=== PATIENT | male | born 1965 | race African-American/Black ===

== ENCOUNTER 2024-09-21 18:06 | Emergency (ER) | payer MEDICAID, OTHER ==
[~2024-09-21] VITALS: Ht 167.6 cm; Wt 68.0 kg
[~2024-09-21 18:06] MED LIST: HYDR12.59 PO; INSU70IN9 SC; LIS5T PO
[2024-09-21 18:34] VITALS: BP 126/65; PULSE 111; RESP 20; TEMP 99.2; O2SAT 98
--- NOTE | 2024-09-21 19:30 | ED.PDOC ---
Musculoskeletal HPI Comments 58 y/o M, with PMHX of DM presents to the ED for CC of postoperative complication. Patient states, that he broke his right ankle on Wednesday (09/17/24) and had a reduction done at a hospital in [facility]. Patient endorses, drainage from splint . Patient denies current pain, fever, body-aches, numbness, or weakness. No other symptoms or modifying factors present at this time. Chief Complaint: Lower Extremity Time Seen by MD: 19:00 Primary Care Provider: KAITLIN Aranda Notes: Nurses Notes, Medications, Allergies Allergies: Coded Allergies: NO KNOWN ALLERGIES (Unverified , 11/16/14) Home Meds Reported Medications Insulin Isophane & Reg (Human) (Humulin 70/30) 70/30 Inj, 25 UNIT SC MORNING, INJ 11/16/14 Hydrochlorothiazide (Hydrochlorothiazide) 12.5 Mg Cap, 1 CAP PO DAILY, #30 CAP 5 Refills 11/16/14 Lisinopril (ZESTRIL TABLET) 5 Mg Tb, 1 TAB PO DAILY, #30 TAB 5 Refills 11/16/14 Information Source: Patient Mode of Arrival: Ambulatory Location: Right Extremity Location: Ankle Timing: Days Prehospital treatment: None Severity: Moderate Able to Move Extremity: Yes Bear Weight: No Pain: None Mechanism: Twisting Circumstances: Fall Onset of Symptoms: After Trauma Associated signs and symptoms: None Past Medical History PAST MEDICAL HISTORY: DM Surgical History: Denies all surgeries Family History Family History: Unknown Social History Smoker: Non-Smoker Alcohol: Denies ETOH Use Drugs: Denies Drug Use Lives In: Home Constitutional: denies: chills, diaphoresis, fatigue, fever, malaise, sweats, weakness, others EENTM: denies: blurred vision, double vision, ear bleeding, ear discharge, ear drainage, ear pain, ear ringing, eye pain, eye redness, hearing loss, mouth pain, mouth swelling, nasal discharge, nose bleeding, nose congestion, nose pain, photophobia, tearing, throat pain, throat swelling, voice changes, others Respiratory: denies: cough, hemoptysis, orthopnea, SOB at rest, shortness of breath, SOB with excertion, stridor, wheezing, others Cardiovascular: denies: chest pain, dizzy spells, diaphoresis, Dyspnea on exertion, edema, irregular heart beat, left arm pain, lightheadedness, palpitations, PND, syncope, others Gastrointestinal: denies: abdomen distended, abdominal pain, blood streaked bowels, constipated, diarrhea, dysphagia, difficulty swallowing, hematemesis, melena, nausea, poor appetite, poor fluid intake, rectal bleeding, rectal pain, vomiting, others Genitourinary: denies: burning, dysuria, flank pain, frequency, hematuria, incontinence, penile discharge, penile sore, pain, testicle pain, testicle swelling, urgency, others Neurological: denies: dizziness, fainting, headache, left sided numbness, left sided weakness, numbness, paresthesia, pre-existing deficit, right sided numbness, right sided weakness, seizure, speech problems, tingling, tremors, weakness, others Musculoskeletal: denies: back pain, gout, joint pain, joint swelling, muscle pain, muscle stiffness, neck pain, others Integumetry: denies: bruises, change in color, change in hair/nails, dryness, laceration, lesions, lumps, rash, wounds, others Allergic/Immunocompromised: denies: Difficulty Healing, Frequent Infections, Hives, Itching, others Hematologic/Lymphatic: denies: anemia, blood clots, easy bleeding, easy bruising, swollen glands, others Endocrine: denies: excessive hunger, excessive sweating, excessive thirst, excessive urination, flushing, intolerance to cold, intolerance to heat, unexplained weight gain, unexplained weight loss, others Psychiatric: denies: anxiety, bipolar disorder, depression, hopeless, panic disorder, schizophrenia, sleepless, suicidal, others All Other Systems: Reviewed and Negative Physical Exam General Appearance: No Apparent Distress, Normal HEENT: Normal ENT Inspection, Pharynx Normal, TMs Normal Neck: Full Range of Motion, Non-Tender, Normal, Normal Inspection Respiratory: Chest Non-Tender, Lungs Clear, No Accessory Muscle Use, No Respiratory Distress, Normal Breath Sounds Cardiovascular: No Edema, No JVD, No Murmur, No Gallop, Normal Peripheral Pulses, Regular Rate/Rhythm Breast Exam: Deferred Gastrointestinal: No Organomegaly, Non Tender, No Pulsatile Mass, Normal Bowel Sounds, Soft Genitalia: Deferred Pelvic: Deferred Rectal: Deferred Extremities: No calf tenderness, Normal capillary refill, Normal inspection, Normal range of motion, Non-tender, No pedal edema Musculoskeletal : Apperance: Normal Neurologic: Alert, funeral home director II-XII nml as Tested, No Motor Deficits, Normal Affect, Normal Mood, No Sensory Deficits Cerebellar Function: Normal Reflexes: Normal Skin: Dry, Normal Color, Warm, Wounds (Three blisters noted on the right lower leg,. To be feel the blood. One of the three blisters has popped. Largest posterior measures approximate 2 cm round.) Lymphatic: No Adenopathy Was a procedure done? Was a procedure done?: No Differential Diagnosis EXT Differential Diagnosis: Fracture, Sprain, Dislocation X-Ray, Labs, Meds, VS Vital Signs Date Time Temp Pulse Resp B/P (MAP) Pulse Ox O2 Delivery O2 Flow Rate FiO2 09/21/24 18:34 99.2 111 20 126/65 (85) 98 99.2 X-Ray, Labs, Meds, VS Comment Patient advised to follow up in two days for wound recheck. Advised to get a hold of primary care doctor tomorrow and try to get into clinical product specialist next available appointment. Time of 1ST Reevaluation: 19:30 Reevaluation 1ST: Unchanged Patient Education/Counseling: Diagnosis, Treatment, Need For Follow Up (Follow up in the emergency department in the next 24-48 hours if symptoms worsen. It was advised to follow up with your primary care doctor in the next 3-4 days for further evaluation.) Family Education/Counseling: No Family Present Departure 1 Departure Time of Disposition: 20:03 Impression: Primary Impression: Closed right ankle fracture Qualified Codes: S82.891D - Other fracture of right lower leg, subsequent encounter for closed fracture with routine healing Additional Impression: Blood blister Disposition: HOME / SELF CARE / HOMELESS Condition: Fair e-Prescriptions Sulfamethoxazole W/Trimethopri (Bactrim Ds Tablet) 1 Tab Tb 1 TAB PO BID for 7 Days, #14 TAB Prov: BRENDA DE LOS SANTOS 09/21/24 Discharged With: Self Critical Care Note Critical Care Time?: No Stability Stability form required: No Heart Score Heart Score: Heart Score Response (Comments) Value History N/A 0 EKG N/A 0 Age N/A 0 Risk Factors N/A 0 Troponin N/A 0 Total 0 I personally scribed for BRENDA DE LOS SANTOS ([facility] on 09/21/24 at 19:30. Electronically submitted by Nidhi Zamora ([email or web address]). BRENDA DE LOS SANTOSP Sep 21, 2024 19:30
[2024-09-21] MEDS ORDERED: BACDST PO (20:04)
== END 2024-09-21 20:36 | disposition home or self-care (01) ==
LOC: ER 18:06
DX: S82.891D Other fracture of right lower leg, subsequent encounter for closed fracture with routine healing (principal); S80.821A Blister (nonthermal), right lower leg, initial encounter; E11.9 Type 2 diabetes mellitus without complications; Z79.899 Other long term (current) drug therapy; X58.XXXD Exposure to other specified factors, subsequent encounter

== ENCOUNTER 2024-09-23 14:52 | Emergency (ER) | payer MEDICAID ==
[~2024-09-23] VITALS: Ht 167.6 cm; Wt 61.0 kg
[~2024-09-23 14:52] MED LIST changes: +BACDST PO
[2024-09-23 15:14] VITALS: BP 115/52; PULSE 97; RESP 16; TEMP 98.3; O2SAT 97
--- NOTE | 2024-09-23 15:45 | ED.PDOC ---
History of Present Illness HPI Comments 58M presents to the ER for a reevaluation for his right ankle which he fractured 6 days ago. Patient notes that he has followed up with a provider, but was advised to come to the ED for evaluation of a blood blister formation on the medial aspect of the affected ankle. PMHx of DM. Denies chills, fever, N/V/D, SOB, or no other associated symptoms, modifiers, recent injuries or sick contacts at this time. Patient is currently on antibiotics. Patient's tetanus is up-to-date. Chief Complaint: Wound Check Time Seen by MD: 15:30 Primary Care Provider: KAITLIN Arnada Notes: Nurses Notes, Medications, Allergies Allergies: Coded Allergies: NO KNOWN ALLERGIES (Unverified , 11/16/14) Home Meds Active Scripts Sulfamethoxazole W/Trimethopri (Bactrim Ds Tablet) 1 Tab Tb, 1 TAB PO BID for 7 Days, #14 TAB Prov:BRENDA DE LOS SANTOS 09/21/24 Reported Medications Insulin Isophane & Reg (Human) (Humulin 70/30) 70/30 Inj, 25 UNIT SC MORNING, INJ 11/16/14 Hydrochlorothiazide (Hydrochlorothiazide) 12.5 Mg Cap, 1 CAP PO DAILY, #30 CAP 5 Refills 11/16/14 Lisinopril (ZESTRIL TABLET) 5 Mg Tb, 1 TAB PO DAILY, #30 TAB 5 Refills 11/16/14 Information Source: Patient Mode of Arrival: Ambulatory Severity: Moderate Timing: Days Duration: Since onset, Days Prehospital treatment: None Past Medical History PAST MEDICAL HISTORY: DM Surgical History: Denies all surgeries Family History Family History: Reviewed,noncontributory to illness, Unknown Social History Smoker: Non-Smoker Alcohol: Denies ETOH Use Drugs: Denies Drug Use Lives In: Home Constitutional: reports: others (Wound check); denies: chills, diaphoresis, fatigue, fever, malaise, sweats, weakness EENTM: denies: blurred vision, double vision, ear bleeding, ear discharge, ear drainage, ear pain, ear ringing, eye pain, eye redness, hearing loss, mouth pain, mouth swelling, nasal discharge, nose bleeding, nose congestion, nose pain, photophobia, tearing, throat pain, throat swelling, voice changes, others Respiratory: denies: cough, hemoptysis, orthopnea, SOB at rest, shortness of breath, SOB with excertion, stridor, wheezing, others Cardiovascular: denies: chest pain, dizzy spells, diaphoresis, Dyspnea on exertion, edema, irregular heart beat, left arm pain, lightheadedness, palpitations, PND, syncope, others Gastrointestinal: denies: abdomen distended, abdominal pain, blood streaked bowels, constipated, diarrhea, dysphagia, difficulty swallowing, hematemesis, melena, nausea, poor appetite, poor fluid intake, rectal bleeding, rectal pain, vomiting, others Genitourinary: denies: burning, dysuria, flank pain, frequency, hematuria, incontinence, penile discharge, penile sore, pain, testicle pain, testicle swelling, urgency, others Neurological: denies: dizziness, fainting, headache, left sided numbness, left sided weakness, numbness, paresthesia, pre-existing deficit, right sided numbness, right sided weakness, seizure, speech problems, tingling, tremors, weakness, others Musculoskeletal: reports: others (Fractured right ankle in a splint); denies: back pain, gout, joint pain, joint swelling, muscle pain, muscle stiffness, neck pain Integumetry: denies: bruises, change in color, change in hair/nails, dryness, laceration, lesions, lumps, rash, wounds, others Allergic/Immunocompromised: denies: Difficulty Healing, Frequent Infections, Hives, Itching, others Hematologic/Lymphatic: denies: anemia, blood clots, easy bleeding, easy bruising, swollen glands, others Endocrine: denies: excessive hunger, excessive sweating, excessive thirst, excessive urination, flushing, intolerance to cold, intolerance to heat, unexplained weight gain, unexplained weight loss, others Psychiatric: denies: anxiety, bipolar disorder, depression, hopeless, panic disorder, schizophrenia, sleepless, suicidal, others All Other Systems: Reviewed and Negative Physical Exam General Appearance: No Apparent Distress (Patient was in no distress at time of evaluation.), Normal HEENT: Normal ENT Inspection, Pharynx Normal, TMs Normal Neck: Full Range of Motion, Non-Tender, Normal, Normal Inspection Respiratory: Chest Non-Tender, Lungs Clear, No Accessory Muscle Use, No Respiratory Distress, Normal Breath Sounds Cardiovascular: No Edema, No JVD, No Murmur, No Gallop, Normal Peripheral Pulses, Regular Rate/Rhythm Breast Exam: Deferred Gastrointestinal: No Organomegaly, Non Tender, No Pulsatile Mass, Normal Bowel Sounds, Soft Genitalia: Deferred Pelvic: Deferred Rectal: Deferred Extremities: No calf tenderness, Normal capillary refill, No pedal edema, Other (Right ankle displays expected edema with mild ecchymosis. Patient has a silver dollar sized bloodied blister noted to the medial aspect of his ankles. No eryt satya noted. No signs of infection.) Musculoskeletal : Apperance: Normal Neurologic: Alert, No Motor Deficits, Normal Affect, Normal Mood, No Sensory Deficits Cerebellar Function: Normal Reflexes: Normal Skin: Dry, Normal Color, Warm, Wounds (See extremities for description of blood filled bulla) Lymphatic: No Adenopathy Was a procedure done? Was a procedure done?: No Differential Dx Considerations may include: Wound evaluation X-Ray, Labs, Meds, VS Vital Signs Date Time Temp Pulse Resp B/P (MAP) Pulse Ox O2 Delivery O2 Flow Rate FiO2 4/5/25 15:14 98.3 97 16 115/52 (73) 97 98.3 X-Ray, Labs, Meds, VS Comment I believe the blood blister to the medial aspect of the right ankle. Wound was dressed and resplinted. Patient has been advised to follow up with his primary care provider or return to this facility on Wednesday for re-evaluation and probable cast placement. Time of 1ST Reevaluation: 16: Reevaluation 1ST: Improved Consultation: PCP, Other (Orthopedics) Patient Education/Counseling: Diagnosis, Treatment, Prognosis Family Education/Counseling: Diagnosis, Treatment, No Family Present Departure 1 Departure Time of Disposition: 16:21 Impression: Primary Impression: Encounter for evaluation of wound Disposition: HOME / SELF CARE / HOMELESS Condition: Stable Additional Instructions: Advised patient to continue antibiotics as prescribed by prior provider as well as pain medication as needed. Patient should follow up with his primary care provider on Wednesday or, return to this facility for orthopedic evaluation. Patient can contact this facility at [phone] and ask for the orthopedic department run by Dr. Martin. Discharged With: Self, Spouse Critical Care Note Critical Care Time?: No Stability Stability form required: No Heart Score Heart Score: Heart Score Response (Comments) Value History N/A 0 EKG N/A 0 Age N/A 0 Risk Factors N/A 0 Troponin N/A 0 Total 0 I personally scribed for SOFIA LOPEZ ([email or web address]) on 09/23/24 at 15:45. Electronically submitted by Isaías Gu ([email or web address]). SOFIA LOPEZ PAC Sep 23, 2024 15:45
== END 2024-09-23 16:59 | disposition home or self-care (01) ==
LOC: ER 14:52
DX: S82.891G Other fracture of right lower leg, subsequent encounter for closed fracture with delayed healing (principal); E11.9 Type 2 diabetes mellitus without complications; Z79.899 Other long term (current) drug therapy; X58.XXXD Exposure to other specified factors, subsequent encounter

== ENCOUNTER 2024-12-07 13:31 | Emergency (ER) | payer MEDICAID ==
[~2024-12-07] VITALS: Ht 167.6 cm; Wt 66.0 kg
--- NOTE | 2024-12-07 13:48 | ED.PDOC ---
Musculoskeletal HPI Comments 59 year old male presents to the ED via EMS with a chief complaint of RT ankle pain onset 3 months. Patient states he fractured RT ankle 3 months ago, was seen at [facility], splint was applied. Patient states pain has been intermittent since, this morning pain worsen, called 911. PMHx DM. Denies chest pain,shortness of breath, fever, chills, headache, dizziness, numbness/tingling. No other symptoms or modifying factors present at this time. Time Seen by MD: 13:42 Primary Care Provider: KAITLIN Aranda Notes: Medications, Allergies Allergies: Coded Allergies: NO KNOWN ALLERGIES (Unverified , 11/16/14) Home Meds Active Scripts Sulfamethoxazole W/Trimethopri (Bactrim Ds Tablet) 1 Tab Tb, 1 TAB PO BID for 7 Days, #14 TAB Prov:BRENDA DE LOS SANTOS 09/21/24 Reported Medications Insulin Isophane & Reg (Human) (Humulin 70/30) 70/30 Inj, 25 UNIT SC MORNING, INJ 11/16/14 Hydrochlorothiazide (Hydrochlorothiazide) 12.5 Mg Cap, 1 CAP PO DAILY, #30 CAP 5 Refills 11/16/14 Lisinopril (ZESTRIL TABLET) 5 Mg Tb, 1 TAB PO DAILY, #30 TAB 5 Refills 11/16/14 Information Source: Patient, Emergency Med Personnel Mode of Arrival: EMS Location: Right Extremity Location: Ankle Timing: Months Prehospital treatment: None Severity: Moderate Bear Weight: Limited Pain: Moderate Circumstances: Fall Onset of Symptoms: After Trauma Symptoms: Swelling, Pain DVT Risk Factors: NONE Associated signs and symptoms: Ankle pain (RT) Past Medical History PAST MEDICAL HISTORY: DM Surgical History: Denies all surgeries Family History Family History: Reviewed,noncontributory to illness, Unknown Social History Smoker: Non-Smoker Alcohol: Denies ETOH Use Drugs: Denies Drug Use Lives In: Home Constitutional: denies: chills, diaphoresis, fatigue, fever, malaise, sweats, weakness, others EENTM: denies: blurred vision, double vision, ear bleeding, ear discharge, ear drainage, ear pain, ear ringing, eye pain, eye redness, hearing loss, mouth pain, mouth swelling, nasal discharge, nose bleeding, nose congestion, nose pain, photophobia, tearing, throat pain, throat swelling, voice changes, others Respiratory: denies: cough, hemoptysis, orthopnea, SOB at rest, shortness of breath, SOB with excertion, stridor, wheezing, others Cardiovascular: denies: chest pain, dizzy spells, diaphoresis, Dyspnea on exertion, edema, irregular heart beat, left arm pain, lightheadedness, palpitations, PND, syncope, others Gastrointestinal: denies: abdomen distended, abdominal pain, blood streaked bowels, constipated, diarrhea, dysphagia, difficulty swallowing, hematemesis, melena, nausea, poor appetite, poor fluid intake, rectal bleeding, rectal pain, vomiting, others Genitourinary: denies: burning, dysuria, flank pain, frequency, hematuria, incontinence, penile discharge, penile sore, pain, testicle pain, testicle swelling, urgency, others Neurological: denies: dizziness, fainting, headache, left sided numbness, left sided weakness, numbness, paresthesia, pre-existing deficit, right sided numbness, right sided weakness, seizure, speech problems, tingling, tremors, weakness, others Musculoskeletal: reports: others (RT ankle pain,swelling); denies: back pain, gout, joint pain, joint swelling, muscle pain, muscle stiffness, neck pain Integumetry: denies: bruises, change in color, change in hair/nails, dryness, laceration, lesions, lumps, rash, wounds, others Allergic/Immunocompromised: denies: Difficulty Healing, Frequent Infections, Hives, Itching, others Hematologic/Lymphatic: denies: anemia, blood clots, easy bleeding, easy bruising, swollen glands, others Endocrine: denies: excessive hunger, excessive sweating, excessive thirst, excessive urination, flushing, intolerance to cold, intolerance to heat, unexplained weight gain, unexplained weight loss, others Psychiatric: denies: anxiety, bipolar disorder, depression, hopeless, panic disorder, schizophrenia, sleepless, suicidal, others All Other Systems: Reviewed and Negative Physical Exam General Appearance: No Apparent Distress, Normal HEENT: Normal ENT Inspection, Pharynx Normal, TMs Normal Neck: Full Range of Motion, Non-Tender, Normal, Normal Inspection Respiratory: Chest Non-Tender, Lungs Clear, No Accessory Muscle Use, No Respiratory Distress, Normal Breath Sounds Cardiovascular: No Edema, No JVD, No Murmur, No Gallop, Normal Peripheral Pulses, Regular Rate/Rhythm Breast Exam: Deferred Gastrointestinal: No Organomegaly, Non Tender, No Pulsatile Mass, Normal Bowel Sounds, Soft Genitalia: Deferred Pelvic: Deferred Rectal: Deferred Extremities: No calf tenderness, Normal capillary refill, Normal inspection, Normal range of motion, Non-tender, No pedal edema Musculoskeletal : Apperance: Normal Neurologic: Alert, radiologist physician II-XII nml as Tested, No Motor Deficits, Normal Affect, Normal Mood, No Sensory Deficits Cerebellar Function: Normal Reflexes: Normal Skin: Dry, Normal Color, Warm Lymphatic: No Adenopathy Was a procedure done? Was a procedure done?: No Differential Diagnosis EXT Differential Diagnosis: Cellulitis, Compartment Syndrome, Fracture, Sprain, Bursitis X-Ray, Labs, Meds, VS Vital Signs Date Time Temp Pulse Resp B/P (MAP) Pulse Ox O2 Delivery O2 Flow Rate FiO2 12/07/24 14:31 123 21 179/82 (114) 95 12/07/24 14:19 97.7 110 18 166/126 (139) 96 97.7 Lab Test 12/07/24 13:58 Range/Units POC Glucose 301 H 70-106 mg/dl Time of 1ST Reevaluation: 14:12 Reevaluation 1ST: Unchanged Patient Education/Counseling: Diagnosis, Treatment, Prognosis Family Education/Counseling: No Family Present Departure 1 Departure Time of Disposition: 19:41 (Presenting with chronic appearing ankle deformity with a chronic appearing fracture dislocation. We will discuss with [facility] and determine a plan of care. Patient unfortunately eloped prior to workup completion) Impression: Primary Impression: Dislocation of distal end of fibula Qualified Codes: S93.04XA - Dislocation of right ankle joint, initial encounter Additional Impression: Fracture of distal end of fibula Qualified Codes: S82.831A - Other fracture of upper and lower end of right fibula, initial encounter for closed fracture Disposition: 07 LEFT AWOL/ELOPED Condition: Serious Comments Addendum: @[address] Cedeño at [facility] Case #[id number] Patient unable to be located in [facility] Attempted to reach patient by phone, attempted to reach patient by next of kin contact number. Both numbers are not in service. -Lucien Morales MD Critical Care Note Critical Care Time?: No Stability Stability form required: No I personally scribed for ALEK SANTANA MD ([email or web address]) on 12/07/24 at 13:48. Electronically submitted by Triny Bradford ([email or web address]). ALEK SANTANA MD Dec 07, 2024 13:48 LUCIEN MORALES MD Dec 07, 2024 19:51
[2024-12-07 14:19] VITALS: TEMP 97.7
--- NOTE | 2024-12-07 14:21 | DVH ---
XY R ANKLE 3 VIEW, INDICATION: right ankle pain TECHNICAL DATA:Frontal , oblique and lateral views were obtained of the right ankle. COMPARISON: None FINDINGS: Distal fibula fracture with dislocation of the tibia-talar joint. Heterogenous ossification at the di stal fibula fracture site. Joint spaces are maintained. Alignment is anatomic. Soft tissues are sw ollen. IMPRESSION: Distal fibula fracture with dislocation of the tibia-talar joint. Heterogenous ossification at the d istal fibula fracture site. A pathologic fracture is not excluded. Correlation for date of fracture r ecommended.
[2024-12-07 14:31] VITALS: BP 179/82; PULSE 123; RESP 21; O2SAT 95
[2024-12-07] MEDS ORDERED: MORPHINE SULFATE 4 MG/ML SYR/VIAL IV ONE (16:15)
[2024-12-07] MEDS ORDERED: SODIUM CHLORIDE 0.9% 1,000 ML IV ONE (16:15)
[2024-12-07] MEDS ORDERED: ONDANSETRON HCL 4 MG/2 ML VIAL IV ONE (16:15)
== END 2024-12-07 22:26 | disposition left against medical advice (07) ==
LOC: EDUNIT# 13:31 → EDBD 13:31 → ER 13:33
DX: S82.301A Unspecified fracture of lower end of right tibia, initial encounter for closed fracture (principal); S92.101A Unspecified fracture of right talus, initial encounter for closed fracture; E11.9 Type 2 diabetes mellitus without complications; Z79.899 Other long term (current) drug therapy; X58.XXXA Exposure to other specified factors, initial encounter; Y93.89 Activity, other specified; Y92.89 Other specified places as the place of occurrence of the external cause; Y99.8 Other external cause status
CPT/HCPCS: 73610; 82947; 82962